=== PATIENT | male | born 1965 | race Caucasian/White ===

== ENCOUNTER 2018-06-07 10:05 | Emergency (ER) | payer MEDICARE, OTHER ==
[2018-06-07 10:25] VITALS: TEMP 97.7
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
--- NOTE | 2018-06-07 12:00 | XR ---
EXAMINATION TYPE: XR chest 2V DATE OF EXAM: 06/07/2018 COMPARISON: 04/15/2015 HISTORY: Shortness of breath and cough TECHNIQUE: Frontal and lateral views of the chest are obtained. FINDINGS: There is no focal air space opacity, pleural effusion, or pneumothorax seen. The cardiac silhouette size is upper limits of normal. The osseous structures are intact. IMPRESSION: No acute cardiopulmonary process.
[2018-06-07 12:09] LABS: Basophils # (A) 0.1 k/uL (0-0.2); Basophils % (A) 0 %; Eosinophils # (A) 0.1 k/uL (0-0.7); Eosinophils % (A) 1 %; HCT 42.4 % (39.0-53.0); HGB 13.5 gm/dL (13.0-17.5); Lymphocytes # (A) 1.8 k/uL (1.0-4.8); Lymphocytes % (A) 13 %; MCH 30.9 pg (25.0-35.0); MCHC 31.8 g/dL (31.0-37.0); MCV 97.2 fL (80.0-100.0); Mean Platelet Volume 6.9; Monocytes # (A) 0.7 k/uL (0-1.0); Monocytes % (A) 5 %; Neutrophils # (A) 11.2 k/uL (1.3-7.7); Neutrophils % (A) 80 %; Platelet Count 299 k/uL (150-450); RBC 4.36 m/uL (4.30-5.90); RDW 13.3 % (11.5-15.5); WBC 14.1 k/uL (3.8-10.6)
[2018-06-07 12:41] LABS: Creatine Kinase MB 1.7 ng/mL (0.0-2.4); Troponin I 0.013 ng/mL (0.000-0.034)
[2018-06-07 12:50] LABS: Calcium 9.9 mg/dL (8.4-10.2); Magnesium 2.3 mg/dL (1.6-2.3); Potassium 4.7 mmol/L (3.5-5.1); Total Bilirubin 0.7 mg/dL (0.2-1.3); Total Protein 6.9 g/dL (6.3-8.2)
--- NOTE | 2018-06-07 12:59 | US ---
EXAMINATION TYPE: US venous doppler duplex LE LT DATE OF EXAM: 06/07/2018 12:17 PM COMPARISON: NONE CLINICAL HISTORY: 53-year-old male Pain. Left leg pain, history of right leg DVT SIDE PERFORMED: Left TECHNIQUE: The lower extremity deep venous system is examined utilizing real time linear array sonog christiano with graded compression, doppler sonography and color-flow sonography. FINDINGS: VESSELS IMAGED: External Iliac Vein (EIV) Common Femoral Vein Deep Femoral Vein Greater Saphenous Vein * Femoral Vein Popliteal Vein Small Saphenous Vein * Proximal Calf Veins (* superficial vessels) Left Leg: Positive for DVT left EIV to proximal calf veins IMPRESSION: Exam positive for extensive DVT of the left lower extremity extending from the external iliac vein do wn through at least the upper calf.
[2018-06-07] MEDS ORDERED: HEPARIN SODIUM,PORCINE 10,000 UNIT/ML 1 ML VIAL IV ONE (13:57)
[2018-06-07] MEDS ORDERED: HEPARIN SODIUM,PORCINE 5,000 UNIT/ML 1 ML VIAL IV PRN (13:57)
[2018-06-07] MEDS ORDERED: HEPARIN SOD,PORK IN 0.45% NACL 25,000 UNIT in 0.45% NACL 1 500ML.BAG IV SCH (14:00)
--- NOTE | 2018-06-07 14:25 | CT ---
EXAMINATION TYPE: CT chest angio for PE DATE OF EXAM: 06/07/2018 COMPARISON: 04/13/2015 HISTORY: Difficulty breathing, light headed, swelling left leg CT DLP: 313.4 mGycm. Automated Exposure Control for Dose Reduction was Utilized. CONTRAST: CTA scan of the thorax is performed with IV Contrast, patient injected with 65 mL of Isovue 370, pulm onary embolism protocol. MIP Images are created on CT scanner and reviewed. FINDINGS: LUNGS: There are scattered groundglass opacities likely relating to atelectasis or early pulmonary in farcts. Right lower lobe focal opacity likely relates to developing pulmonary infarct given the total occlusive subsegmental right lower lobe pulmonary emboli. Additionally there is a small layering rig ht pleural effusion. MEDIASTINUM: There are bilateral pulmonary emboli with large clot burden originating in the right and left main pulmonary arteries and extending to all segmental pulmonary arteries to each pulmonary lob e. Some of these are entirely occlusive to the right lower lobe. There is resultant evidence of right heart strain with mild enlargement and main pulmonary artery measuring up to 3.0 cm and an abnormal right ventricular to left ventricular ratio of 2.65. There is only minimal reflux of contrast into th e inferior vena cava and hepatic veins. Mediastinal adenopathy is present with enlarged lymph nodes i n the subcarinal space measuring up to 1.7 cm and in the left paratracheal space measuring up to 1.1 cm as well as the pretracheal space measuring up to 1.1 cm. Other prominent mediastinal lymph nodes a re also seen. No cardiomegaly or pericardial effusion is seen. OTHER: Small amount of fluid is seen adjacent to the spleen and along the hepatic margin with mesente john congestion around the portal vein and central mesentery with lobulated contour of the liver sugge sting underlying hepatocellular disease and enlargement of the liver. IMPRESSION: 1. Bilateral large burden acute pulmonary emboli with findings of right heart strain and developing r ight lower lobe pulmonary infarct and small right pleural effusion. Findings can indicate with the ER physician Dr. Laura by Dr. Lugo at 1421 on 06/07/2018. 2. Sequela findings suggesting hepatocellular disease/cirrhosis and portal venous hypertension with s cant ascites.
[2018-06-07 14:52] VITALS: BP 121/79
[2018-06-07 14:54] VITALS: PULSE 111; RESP 22
[2018-06-07 16:00] LABS: INR 1.5 (<1.2)
[2018-06-07 16:13] LABS: D-Dimer 6.35 mg/L FEU (<0.60); Partial Thromboplastin Time 107.8 sec (22.0-30.0)
== END 2018-06-07 15:43 | disposition other institution (70) ==
LOC: EC 10:05
DX: I82.402 Acute embolism and thrombosis of unspecified deep veins of left lower extremity (principal); I26.99 Other pulmonary embolism without acute cor pulmonale; I48.91 Unspecified atrial fibrillation; F20.9 Schizophrenia, unspecified; F17.210 Nicotine dependence, cigarettes, uncomplicated; F31.9 Bipolar disorder, unspecified; Z79.899 Other long term (current) drug therapy; Z88.5 Allergy status to narcotic agent
CPT/HCPCS: 99285; 96374; 36415; 93005; 85379; 83880; 80053; 82550; 82553; 83735; 84484; 85025; 85610; 85730; 71046; 93971; 71275; J1644 ×2; Q9967